=== PATIENT | female | born 1990 | race Caucasian/White ===

== ENCOUNTER 2018-06-19 03:06 | Emergency (ER) | payer OTHER ==
[~2018-06-19] VITALS: Ht 154.9 cm; Wt 59.0 kg
[2018-06-19 03:14] VITALS: Ht 154.9 cm; Wt 59.0 kg
[2018-06-19 03:57] VITALS: BP 116/75
== END 2018-06-19 03:57 | disposition other institution (70) ==
LOC: ED 03:06
DX: Z02.89 Encounter for other administrative examinations (principal)